=== PATIENT | male | born 2000 | race Caucasian/White ===

== ENCOUNTER 2023-11-22 11:44 | Emergency (ER) | payer OTHER ==
[~2023-11-22] VITALS: Ht 175.3 cm; Wt 83.5 kg
[2023-11-22 12:37] LABS: BASO # 0.1 10^3/uL (0.0-0.2); BASO % 0.4 % (0.0-1.0); EOS # 0.1 10^3/uL (0.0-0.5); EOS % 0.7 % (0.0-3.0); HEMATOCRIT 46.9 % (42.0-52.0); HEMOGLOBIN 16.1 g/dl (13.5-17.5); LYMPH # 1.9 10^3/uL (1.5-5.0); LYMPH % 11.5 % (24.0-44.0); MEAN CORPUSCULAR HEMOGLOBIN 31.1 pg (27.0-33.0); MEAN CORPUSCULAR HGB CONC 34.3 g/dl (32.0-36.5); MEAN CORPUSCULAR VOLUME 90.5 fl (80.0-96.0); NEUTROPHILS # 13.3 10^3/uL (1.5-8.5); PLATELET COUNT, AUTOMATED 285 10^3/uL (150-450); RED BLOOD COUNT 5.18 10^6/uL (4.30-6.10); WHITE BLOOD COUNT 16.4 10^3/uL (4.0-10.0)
[2023-11-22 12:42] LABS: ERYTHROCYTE SEDIMENTATION RATE 2 mm/hr (0-15)
[2023-11-22] MEDS: ALBUTEROL SULFATE 2.5MG/0.5ML INH NEB SOLN NEB ONE (12:42)
[2023-11-22] MEDS: FAMOTIDINE 20MG/2ML VIAL IVP ONE (12:47)
[2023-11-22] MEDS: methylPREDNISolone 125MG 2ML VIAL IV ONE (12:47)
[2023-11-22] MEDS: NS 1,000 ML IV ONE (12:49)
[2023-11-22] MEDS ORDERED: PRED20TA PO (14:46)
[2023-11-22 14:59] VITALS: BP 115/64; TEMP 97.2; O2SAT 98
== END 2023-11-22 15:03 | disposition home or self-care (01) ==
LOC: M ED 11:44
DX: L50.9 Urticaria, unspecified (principal); I45.10 Unspecified right bundle-branch block; Z79.52 Long term (current) use of systemic steroids
CPT/HCPCS: 80047; 85025; 85652; 86140; 93005; 94640; 96361; 96374; 96375; 99284; J2930; S0028